=== PATIENT | female | born 1960 | race African-American/Black ===

== ENCOUNTER 2023-05-03 10:33 | Inpatient (IN) | payer MEDICARE, MEDICAID ==
[~2023-05-03] VITALS: Ht 165.1 cm; Wt 90.3 kg
[~2023-05-03 10:33] MED LIST: ALBUTEROL
[2023-05-03] MEDS ORDERED: ALBUTEROL (0.083%) 2.5MG/3ML NEB HHN STA (10:40)
[2023-05-03] MEDS ORDERED: IPRATROPIUM BROMIDE (0.02%) 0.5MG/2.5ML NEB HHN STA (10:40)
[2023-05-03] MEDS ORDERED: METHYLPREDNISOLONE SOD SUCC 125MG/2ML (ACT-O-VIAL) IV STA (10:40)
[2023-05-03] MEDS ORDERED: MAGNESIUM 2 G PREMIX 50 ML IV STA (10:40)
[2023-05-03 11:25] VITALS: PULSE 97; RESP 24; O2SAT 93
[2023-05-03 12:42] LABS: BASOPHILS % 0.8 % (0.0-2.0); EOSINOPHILS % 3.3 % (0.0-5.0); HEMATOCRIT. 45.3 % (36.0-48.0); HEMOGLOBIN. 15.1 g/dL (12.0-16.0); LYMPHOCYTES % 22.7 % (20.0-50.0); MEAN CORPUSCULAR HEMOGLOBIN 28.8 pg (28.0-32.0); MEAN CORPUSCULAR HGB CONC 33.4 g/dL (31.0-37.0); MEAN CORPUSCULAR VOLUME 86.3 fL (81.0-99.0); MEAN PLATELET VOLUME 9.5 fl (7.4-10.4); MONOCYTES % 5.6 % (2.0-8.0); NEUTROPHILS % 67.6 % (40.0-76.0); PLATELET 334 x1000/uL (130-400); RED BLOOD CELL COUNT 5.25 mill/uL (4.2-5.4); RED CELL DISTRIBUTION WIDTH 14.9 % (11.6-14.6); WHITE BLOOD COUNT 9.5 x1000/uL (4.5-11.0)
[2023-05-03 13:15] LABS: ALANINE AMINOTRANSFERASE 19 IU/L (10-49); ALBUMIN 4.6 g/dL (3.2-4.8); ASPARTATE AMINOTRANSFERASE 49 IU/L (<34); BILIRUBIN TOTAL 0.5 mg/dL (0.1-1.0); CALCIUM 9.4 mg/dL (8.7-10.4); CARBON DIOXIDE 33 mEq/L (21-32); CHLORIDE 102 mEq/L (98-107); CREATININE 0.8 mg/dL (0.6-1.0); GLUCOSE 101 mg/dL (70-105); POTASSIUM 5.7 mEq/L (3.5-5.1); SODIUM 139 mEq/L (136-145); UREA NITROGEN BLOOD 12 mg/dL (9-23)
[2023-05-03] MEDS ORDERED: ONDANSETRON HCL 4MG/2ML INJ IV PRN (13:15)
[2023-05-03] MEDS ORDERED: CLONIDINE 0.1MG TABLET PO PRN (13:15)
[2023-05-03] MEDS ORDERED: IPRATROPIUM/ALBUTEROL 0.5-3(2.5)MG/3ML NEB HHN PRN (13:15)
[2023-05-03] MEDS ORDERED: MAGNESIUM/ALUMINUM HYDROXIDE/SIMETHICONE 30ML UDC PO PRN (13:15)
[2023-05-03] MEDS ORDERED: ENOXAPARIN 40MG/0.4ML SYR SUBCUT SCH (13:15)
[2023-05-03] MEDS ORDERED: ACETAMINOPHEN 325MG TABLET PO PRN ×2 (13:15)
[2023-05-03] MEDS ORDERED: DIPHENHYDRAMINE 50MG/ML VIAL IV PRN (13:15)
[2023-05-03 13:17] LABS: PROTEIN TOTAL 8.6 g/dL (6.0-8.3); TROPONIN I HIGH SENSITIVITY < 4 ng/L (3.0-34)
[2023-05-03] MEDS ORDERED: IPRATROPIUM/ALBUTEROL 0.5-3(2.5)MG/3ML NEB HHN SCH (13:30)
[2023-05-03] MEDS: METHYLPREDNISOLONE SOD SUCC 125MG/2ML (ACT-O-VIAL) IV SCH ×2 (14:34→21:16)
[2023-05-03] MEDS: SODIUM CHLORIDE 0.9% INJ 3ML FLUSH IVF SCH ×2 (14:34→21:21)
[2023-05-03 18:50] VITALS: BP 135/66; PULSE 114; RESP 22; TEMP 97.5
[2023-05-03 19:00] VITALS: BP 125/74; PULSE 94; RESP 18; TEMP 98.8
[2023-05-03 20:00] VITALS: BP 132/75; PULSE 106; RESP 20; TEMP 98.8
[2023-05-03] MEDS ORDERED: ZOLPIDEM TARTRATE 5MG TABLET PO PRN (21:00)
[2023-05-03] MEDS: FAMOTIDINE 20MG TABLET PO SCH (21:15)
[2023-05-03] MEDS ORDERED: INFLUENZA VACCINE 05/PF 0.5 ML SYRINGE IM ONE (23:45)
[2023-05-03 23:55] VITALS: RESP 22
[2023-05-04] VITALS (9 sets, daily range): BP systolic 110–137; BP diastolic 67–71; PULSE 83–102; RESP 18–33; TEMP 96.1–97.9; O2SAT 94
[2023-05-04] MEDS: ENOXAPARIN 30MG/0.3ML SYR SUBCUT SCH ×3 (05:47→16:59)
[2023-05-04] MEDS: METHYLPREDNISOLONE SOD SUCC 125MG/2ML (ACT-O-VIAL) IV SCH ×3 (05:47→21:33)
[2023-05-04] MEDS: SODIUM CHLORIDE 0.9% INJ 3ML FLUSH IVF SCH ×3 (05:48→21:33)
[2023-05-04 08:01] LABS: CALCIUM 9.7 mg/dL (8.7-10.4); CARBON DIOXIDE 33 mEq/L (21-32); CHLORIDE 100 mEq/L (98-107); CREATININE 0.8 mg/dL (0.6-1.0); GLUCOSE 126 mg/dL (70-105); POTASSIUM 4.3 mEq/L (3.5-5.1); SODIUM 138 mEq/L (136-145); UREA NITROGEN BLOOD 15 mg/dL (9-23)
[2023-05-04 08:14] LABS: BASOPHILS % 0.1 % (0.0-2.0); HEMATOCRIT. 43.8 % (36.0-48.0); LYMPHOCYTES % 11.8 % (20.0-50.0); MEAN CORPUSCULAR HEMOGLOBIN 28.1 pg (28.0-32.0); MEAN CORPUSCULAR HGB CONC 31.8 g/dL (31.0-37.0); MEAN CORPUSCULAR VOLUME 88.1 fL (81.0-99.0); MEAN PLATELET VOLUME 10.1 fl (7.4-10.4); MONOCYTES % 1.5 % (2.0-8.0); NEUTROPHILS % 86.6 % (40.0-76.0); PLATELET 349 x1000/uL (130-400); RED BLOOD CELL COUNT 4.97 mill/uL (4.2-5.4); RED CELL DISTRIBUTION WIDTH 14.7 % (11.6-14.6)
[2023-05-04] MEDS: FAMOTIDINE 20MG TABLET PO SCH ×2 (08:17→21:33)
[2023-05-04] MEDS: IPRATROPIUM/ALBUTEROL 0.5-3(2.5)MG/3ML NEB HHN SCH ×2 (16:11→22:42)
[2023-05-04] MEDS: BUDESONIDE 0.5MG/2ML NEB HHN SCH (22:42)
[2023-05-05] VITALS (10 sets, daily range): BP systolic 105–124; BP diastolic 54–59; PULSE 76–91; RESP 16–22; TEMP 97.5–98.2; O2SAT 95–98
[2023-05-05] MEDS: IPRATROPIUM/ALBUTEROL 0.5-3(2.5)MG/3ML NEB HHN SCH ×5 (01:10→16:25)
[2023-05-05] MEDS: BUDESONIDE 0.5MG/2ML NEB HHN SCH ×2 (03:27→10:00)
[2023-05-05] MEDS: ENOXAPARIN 30MG/0.3ML SYR SUBCUT SCH ×2 (05:11→16:50)
[2023-05-05] MEDS: SODIUM CHLORIDE 0.9% INJ 3ML FLUSH IVF SCH ×3 (05:11→21:20)
[2023-05-05] MEDS: METHYLPREDNISOLONE SOD SUCC 125MG/2ML (ACT-O-VIAL) IV SCH ×3 (05:11→21:20)
[2023-05-05] MEDS: FAMOTIDINE 20MG TABLET PO SCH ×2 (08:31→21:20)
[2023-05-05 09:37] LABS: BG BASE EXCESS 2.8 mmol/L (-2.0-2.0); BG CARBOXYHEMOGLOBIN 0.2 % (0.5-1.5); BG DEOXYHEMOGLOBIN 6.3 % (0.0-5.0); BG FRACTION INSPIRED OXYGEN 28; BG HCO3 ACT 29.1 mmol/L (22.0-26.0); BG METHEMOGLOBIN 0.4 % (0.0-1.5); BG OXYGEN SATURATION 93.7 % (92.0-98.5); BG OXYHEMOGLOBIN 93.1 % (94.0-97.0); BG PCO2 51.9 mmHg (35.0-45.0); BG PH 7.367 (7.350-7.450); BG PO2 69.2 mmHg (75.0-100.0); BG SAMPLE SITE RIGHT RADIAL; BG TOTAL HEMOGLOBIN 13.9 g/dL (12.0-18.0); BG VENT MODE NASAL CANNULA
[2023-05-06] VITALS (13 sets, daily range): BP systolic 108–132; BP diastolic 49–73; PULSE 79–94; RESP 18–22; TEMP 97–98.1; O2SAT 94–97
[2023-05-06] MEDS: IPRATROPIUM/ALBUTEROL 0.5-3(2.5)MG/3ML NEB HHN SCH ×6 (03:27→23:49)
[2023-05-06] MEDS: METHYLPREDNISOLONE SOD SUCC 125MG/2ML (ACT-O-VIAL) IV SCH ×3 (05:16→21:07)
[2023-05-06] MEDS: ENOXAPARIN 30MG/0.3ML SYR SUBCUT SCH ×2 (05:16→17:18)
[2023-05-06] MEDS: SODIUM CHLORIDE 0.9% INJ 3ML FLUSH IVF SCH ×3 (05:17→21:06)
[2023-05-06] MEDS: FAMOTIDINE 20MG TABLET PO SCH ×2 (08:18→21:07)
[2023-05-06] MEDS: BUDESONIDE 0.5MG/2ML NEB HHN SCH ×2 (08:19→21:12)
[2023-05-06] MEDS: GUAIFENESIN 200MG/10ML SUGAR FREE UDC PO PRN ×2 (08:21→14:58)
[2023-05-07] VITALS (11 sets, daily range): BP systolic 112–125; BP diastolic 53–70; PULSE 71–96; RESP 16–20; TEMP 96.5–98.1; O2SAT 96–98
[2023-05-07] MEDS: IPRATROPIUM/ALBUTEROL 0.5-3(2.5)MG/3ML NEB HHN SCH ×5 (03:18→21:18)
[2023-05-07] MEDS: ENOXAPARIN 30MG/0.3ML SYR SUBCUT SCH ×2 (05:41→19:04)
[2023-05-07] MEDS: SODIUM CHLORIDE 0.9% INJ 3ML FLUSH IVF SCH ×3 (05:46→21:24)
[2023-05-07] MEDS: METHYLPREDNISOLONE SOD SUCC 125MG/2ML (ACT-O-VIAL) IV SCH ×3 (05:46→21:25)
[2023-05-07] MEDS: BUDESONIDE 0.5MG/2ML NEB HHN SCH ×3 (08:00→21:19)
[2023-05-07] MEDS: FAMOTIDINE 20MG TABLET PO SCH ×2 (10:57→21:24)
[2023-05-07] MEDS: GUAIFENESIN 600MG ER TABLET PO SCH (21:24)
[2023-05-08] VITALS (12 sets, daily range): BP systolic 105–116; BP diastolic 49–69; PULSE 72–92; RESP 15–21; TEMP 97.3–98; O2SAT 93–96
[2023-05-08] MEDS: IPRATROPIUM/ALBUTEROL 0.5-3(2.5)MG/3ML NEB HHN SCH ×6 (01:33→23:43)
[2023-05-08] MEDS: METHYLPREDNISOLONE SOD SUCC 125MG/2ML (ACT-O-VIAL) IV SCH ×3 (05:31→21:40)
[2023-05-08] MEDS: SODIUM CHLORIDE 0.9% INJ 3ML FLUSH IVF SCH ×3 (05:31→21:43)
[2023-05-08] MEDS: ENOXAPARIN 30MG/0.3ML SYR SUBCUT SCH ×2 (05:31→18:43)
[2023-05-08] MEDS: BUDESONIDE 0.5MG/2ML NEB HHN SCH ×2 (08:00→19:30)
[2023-05-08] MEDS: FAMOTIDINE 20MG TABLET PO SCH (09:35)
[2023-05-08] MEDS: GUAIFENESIN 600MG ER TABLET PO SCH ×2 (09:35→21:39)
[2023-05-08] MEDS: MONTELUKAST SODIUM 10MG TABLET PO SCH (18:43)
[2023-05-08] MEDS: FAMOTIDINE 20MG/2ML VIAL IV SCH (21:40)
[2023-05-09] VITALS (9 sets, daily range): BP systolic 117–127; BP diastolic 64–67; PULSE 74–93; RESP 16–22; TEMP 98–98.2; O2SAT 93–95
[2023-05-09] MEDS: IPRATROPIUM/ALBUTEROL 0.5-3(2.5)MG/3ML NEB HHN SCH ×6 (03:38→23:42)
[2023-05-09] MEDS: ENOXAPARIN 30MG/0.3ML SYR SUBCUT SCH ×2 (05:34→18:10)
[2023-05-09] MEDS: METHYLPREDNISOLONE SOD SUCC 125MG/2ML (ACT-O-VIAL) IV SCH ×3 (05:34→21:52)
[2023-05-09] MEDS: SODIUM CHLORIDE 0.9% INJ 3ML FLUSH IVF SCH ×3 (05:35→21:52)
[2023-05-09] MEDS: BUDESONIDE 0.5MG/2ML NEB HHN SCH ×2 (08:19→20:11)
[2023-05-09] MEDS: GUAIFENESIN 600MG ER TABLET PO SCH ×2 (09:00→21:52)
[2023-05-09] MEDS: FAMOTIDINE 20MG/2ML VIAL IV SCH ×2 (09:45→21:52)
[2023-05-09 11:04] LABS: BG DEOXYHEMOGLOBIN 6.8 % (0.0-5.0); BG HCO3 ACT 33.9 mmol/L (22.0-26.0); BG METHEMOGLOBIN 0.4 % (0.0-1.5); BG OXYGEN SATURATION 93.2 % (92.0-98.5); BG OXYHEMOGLOBIN 92.8 % (94.0-97.0); BG PCO2 51.1 mmHg (35.0-45.0); BG PH 7.439 (7.350-7.450); BG PO2 65.6 mmHg (75.0-100.0); BG SAMPLE SITE RIGHT RADIAL; BG TOTAL HEMOGLOBIN 15.4 g/dL (12.0-18.0); BG VENT MODE ROOM AIR
[2023-05-09] MEDS ORDERED: BENZONATATE 100MG CAPSULE PO NR (18:00)
[2023-05-09] MEDS ORDERED: BENZONATATE 100MG CAPSULE PO PRN (18:00)
[2023-05-09] MEDS: MONTELUKAST SODIUM 10MG TABLET PO SCH (18:09)
[2023-05-10] MEDS: IPRATROPIUM/ALBUTEROL 0.5-3(2.5)MG/3ML NEB HHN SCH ×3 (03:54→11:55)
[2023-05-10] MEDS: METHYLPREDNISOLONE SOD SUCC 125MG/2ML (ACT-O-VIAL) IV SCH ×2 (06:10→13:34)
[2023-05-10] MEDS: SODIUM CHLORIDE 0.9% INJ 3ML FLUSH IVF SCH ×2 (06:10→13:34)
[2023-05-10] MEDS: ENOXAPARIN 30MG/0.3ML SYR SUBCUT SCH (06:10)
[2023-05-10] MEDS: BUDESONIDE 0.5MG/2ML NEB HHN SCH (07:58)
[2023-05-10 07:59] VITALS: PULSE 83; RESP 16; O2SAT 96
[2023-05-10 08:00] VITALS: BP 106/63; PULSE 75; RESP 20; TEMP 97.5
[2023-05-10] MEDS: FAMOTIDINE 20MG/2ML VIAL IV SCH (08:48)
[2023-05-10] MEDS: GUAIFENESIN 600MG ER TABLET PO SCH (08:48)
[2023-05-10 11:55] VITALS: PULSE 85; RESP 16; O2SAT 95
[2023-05-10 12:00] VITALS: BP 145/73; PULSE 84; RESP 22; TEMP 97.7
[2023-05-10 13:21] VITALS: BP 145/73; PULSE 84; TEMP 97.7; O2SAT 96
== END 2023-05-10 15:53 | disposition home or self-care (01) | DRG 189 ==
LOC: ER 10:33 → MICUSO 12:02 → EDBEDREQTM 12:05 → EDBEDREQ 12:05 → 8WST 19:03
PROVIDERS: ADMIT Internal Medicine; ATTEND Internal Medicine
PROC: 5A09357 Assistance with Respiratory Ventilation, Less than 24 Consecutive Hours, Continuous Positive Airway Pressure (ICD-10-PCS; principal; 2023-05-06)
DX: J96.01 Acute respiratory failure with hypoxia (principal); J44.1 Chronic obstructive pulmonary disease with (acute) exacerbation; J45.901 Unspecified asthma with (acute) exacerbation; J44.0 Chronic obstructive pulmonary disease with (acute) lower respiratory infection; E66.01 Morbid (severe) obesity due to excess calories; E87.5 Hyperkalemia; J20.9 Acute bronchitis, unspecified; G47.33 Obstructive sleep apnea (adult) (pediatric); Z68.33 Body mass index [BMI] 33.0-33.9, adult
CPT/HCPCS: 36415; 36600; 71045; 80048; 80053; 82375; 82805; 83880; 84484; 85025; 87804; 90686; 93005; 94640; 94644; 94660; 97116; 97162; 99291; C1893; J1650; J2930; J3475; J3490; J7626